=== PATIENT | female | born 2000 | race Caucasian/White ===

== ENCOUNTER 2024-03-04 13:55 | Outpatient (CLI) | payer MEDICAID | END 2024-03-04 23:59 | disposition home or self-care (01) | LOC: RAD 13:55 | PROVIDERS: ATTEND Obstetrics & Gynecology | DX: O09.73 Supervision of high risk pregnancy due to social problems, third trimester (principal); Z3A.35 35 weeks gestation of pregnancy | CPT/HCPCS: 76805 ==